=== PATIENT | male | born 1970 | race Caucasian/White ===

== ENCOUNTER 2022-08-18 07:01 | Outpatient (CLI) | payer BC, SELFPAY ==
--- NOTE | 2022-08-18 08:43 | W.ANESCHARGE ---
Anesthesia Charges Start Date/Time Anesthesia Start Date: 08/18/22 Anesthesia Start Time: 07:59 Stop Date/Time Anesthesia Stop Date: 08/18/22 Anesthesia Stop Time: 08:39
== END 2022-08-18 07:02 | disposition home or self-care (01) ==
PROVIDERS: PCP Family Medicine; Visit Provider Internal Medicine Gastroenterology
DX: Z12.11 Encounter for screening for malignant neoplasm of colon (principal)
CPT/HCPCS: 00812; 45378; J2704; J3490